=== PATIENT | female | born 1970 | race African-American/Black ===

== ENCOUNTER 2016-09-10 13:36 | Emergency (ER) | payer OTHER ==
[2016-09-10 13:43] VITALS: BMI 38.1
[2016-09-10] MEDS ORDERED: KETOROLAC TROMETHAMINE 60 MG/2 ML VIAL IM ONE (15:00)
[2016-09-10] MEDS ORDERED: KETOROLAC TROMETHAMINE 60 MG/2 ML VIAL ONE (15:02)
--- NOTE | 2016-09-10 15:34 | PDOC ---
[id number] Source: Patient Exam Limitations: No Limitations - History of Present Illness Initial Comments: 09/10/16 15:43 46-year-old female presents to the ED with complaints of low back pain radiating to her right buttock and now to her right groin. Patient states has history of spinal spondylolisthesis and spondylolysis and has had numerous procedures including epidurals, nerve therapy, pain meds, and now is pending surgery but needed cardiac clearance secondary to an arrhythmia. Pt states psin normally is in her right back, buttock but not to her right groin and concerned with the symptoms but denies any sensory changes to the toes, weakness of the right lower extremity, swelling, or skin discoloration. patient states has been taking Motrin with no relief. Timing/Duration: getting worse Severity: moderate Associated Symptoms: reports: denies symptoms <Lorraine Walker - Last Filed: 09/15/16 08:35> - General Chief Complaint: Pain Stated Complaint: RT SIDE PAIN, PELVIC PAIN Time Seen by Provider: 09/10/16 14:01 Past History <Francisco Sarmiento - Last Filed: 09/10/16 20:40> - Past Medical History Anemia: No Asthma: No Cancer: No Cardiac Disorders: No CVA: No COPD: No CHF: No Dementia: No Diabetes: No GI Disorders: Yes (diverticulitis) Disorders: No HTN: Yes Hypercholesterolemia: No Liver Disease: No Seizures: No Thyroid Disease: No Other medical history: SPINE PROBLEMS - Surgical History Abdominal Surgery: Yes Appendectomy: No Cardiac Surgery: No Cholecystectomy: Yes Lung Surgery: No Neurologic Surgery: No Orthopedic Surgery: No - Reproductive History Dysfunctional Uterine Bleeding: Yes Ectopic : No Endometrial CA: No Polycystic Ovaries: No Tubal Ligation: Yes - Immunization History Immunization Up to Date: Yes - Psycho/Social/Smoking Cessation Hx Anxiety: No Suicidal Ideation: No Smoking Status: No Smoking History: Never smoked Have you smoked in the past 12 months: No Number of Cigarettes Smoked Daily: 0 If you are a former smoker, when did you quit?: 1989 Information on smoking cessation initiated: No Hx Alcohol Use: No Drug/Substance Use Hx: No Substance Use Type: None Hx Substance Use Treatment: No Patient Lives Alone: No Lives with/in: spouse/SO <Lorraine Walker - Last Filed: 09/15/16 08:35> - Past Medical History Allergies/Adverse Reactions: Allergies Allergy/AdvReac Type Severity Reaction Status Date / Time naproxen [From Naprosyn] Allergy Mild Itching Verified 09/10/16 13:40 STRAWBERRIES Allergy Itching Uncoded 09/10/16 13:40 TOMATOES Allergy Itching Uncoded 09/10/16 13:40 Home Medications: Ambulatory Orders Lisinopril/Hydrochlorothiazide [Lisinopril-Hctz 20-25 mg Tab] 1 each PO DAILY Cyclobenzaprine HCl [Flexeril -] 10 mg PO Q8H PRN #9 tablet 06/10/16 Hydrocodone/Acetaminophen [Vicodin Hp 10-300 mg Tablet] 1 each PO Q8H PRN #1 tablet MDD 3 tabs 06/10/16 Polyethylene Glycol 3350 [Miralax 119 gm Btl -] 17 gm PO DAILY PRN #0 bottle 06/16 Sennosides/Docusate Sodium [Pericolace -] 2 tablet PO HS PRN #0 tablet 06/10/16 Oxycodone HCl/Acetaminophen [Percocet 10-325 mg Tablet] 1 each PO Q6H PRN #12 tablet MDD 4 TABS 09/10/16 Review of Systems - Review of Systems Able to Perform ROS?: Yes Constitutional: No: Symptoms Reported HEENTM: No: Symptoms Reported Respiratory: No: Symptoms reported Cardiac (ROS): No: Symptoms Reported ABD/GI: No: Symptoms Reported : No: Frequency Musculoskeletal: Yes: Back Pain, Joint Pain, Muscle Pain (right groin) Integumentary: No: Symptoms Reported Neurological: No: Symptoms reported <Lorraine Walker - Last Filed: 09/15/16 08:35> *Physical Exam - Vital Signs Last Vital Signs Temp Pulse Resp BP Pulse Ox 98.4 F 110 H 18 160/89 100 09/10/16 13:40 09/10/16 13:40 09/10/16 13:40 09/10/16 13:40 09/10/16 13:40 <Francisco Sarmiento - Last Filed: 09/10/16 20:40> - Vital Signs Last Vital Signs Temp Pulse Resp BP Pulse Ox 98.4 F 110 H 18 160/89 100 09/10/16 13:40 09/10/16 13:40 09/10/16 13:40 09/10/16 13:40 09/10/16 13:40 - Physical Exam General Appearance: Yes: Nourished, Appropriately Dressed. No: Apparent Distress Neck: positive: Supple. negative: Tender, Decreased range of motion Respiratory/Chest: positive: Lungs Clear, Normal Breath Sounds. negative: Respiratory Distress, Accessory Muscle Use Cardiovascular: positive: Regular Rhythm, Regular Rate. negative: Murmur Female Pelvic Exam: positive: normal adnexa. negative: CMT, discharge, vaginal bleeding Gastrointestinal/Abdominal: positive: Soft, Tenderness (right suprapubic, right inguinal) Musculoskeletal: positive: Other (right sciatica, right paraspinous at L5 level) . negative: CVA Tenderness, Decreased Range of Motion, Vertebral Tenderness Extremity: positive: Normal Capillary Refill, Normal Inspection, Normal Range of Motion Integumentary: positive: Normal Color, Warm, Moist Neurologic: positive: Motor Strength 5/5 (ambulatory) <Lorraine Walker - Last Filed: 09/15/16 08:35> ED Treatment Course - ADDITIONAL ORDERS Additional order review: Laboratory Results 09/10/16 15:48 Urine Color Lt. yellow Urine Appearance Clear Urine pH 7.5 D Ur Specific [place] 1.010 Urine Protein Negative Urine Glucose (UA) Negative Urine Ketones Negative Urine Blood Negative Urine Nitrite Negative Urine Bilirubin Negative Urine Urobilinogen 0.2 e.u/dl Ur Leukocyte Esterase Trace H D Urine RBC 2 Urine WBC 1 Ur Epithelial Cells Rare Urine Bacteria Rare - Medications Given in the ED: ED Medications Discontinued Medications Generic Name Dose Route Start Last Admin Trade Name Freq PRN Reason Stop Dose Admin Ketorolac Tromethamine 60 mg 09/10/16 15:00 09/10/16 15:07 Toradol Injection - IM 09/10/16 15:01 60 mg ONCE ONE Administration Oxycodone/Acetaminophen 1 combo 09/10/16 17:40 09/10/16 17:41 Percocet 5/325 - PO 09/10/16 17:41 1 combo ONCE ONE Administration <Francisco Sarmiento - Last Filed: 09/10/16 20:40> - Medications Given in the ED: ED Medications Discontinued Medications Generic Name Dose Route Start Last Admin Trade Name Freq PRN Reason Stop Dose Admin Ketorolac Tromethamine 60 mg 09/10/16 15:00 09/10/16 15:07 Toradol Injection - IM 09/10/16 15:01 60 mg ONCE ONE Administration <Lorraine Walker - Last Filed: 09/15/16 08:35> Medical Decision Making - Medical Decision Making 09/10/16 20:40 ULTRASOUND SHOWS RIGHT OVARIAN CYST. PLAN: D/C HOME WITH PAIN RELIEF F/U WITH SURVEILLANCE SYSTEM MONITOR. <Francisco Sarmiento - Last Filed: 09/10/16 20:40> - Medical Decision Making 09/10/16 14:47 Patient with history of chronic back pain and is pending spinal surgery. Patient states pain has gone to her right buttocks and right hip but never to her right groin. Patient states has been taking Motrin since she was told not to take Vicodin since needed a drug holiday. Patient on exam had right sciatica tenderness, right paraspinous muscle tenderness, and right inguinal pain with mild right suprapubic tenderness on exam. Patient concerning for UTI or worsening spondylosis. Patient ordered for urine and IM Toradol. 09/10/16 17:24 Laboratory Tests 09/10/16 15:48 Urine Ketones Negative Urine Nitrite Negative Urine Bilirubin Negative Ur Leukocyte Esterase Trace H D Pt still with right suprapubic tenderness. Pt had no adnexal tenderness on exam. Pt ordered for percocet, will be given a pitcher of water, and ordered fro a pelvic ultrasound <Lorraine Walker - Last Filed: 09/15/16 08:35> *DC/Admit/Observation/Transfer - Discharge Dispostion Admit: No <Francisco Sarmiento - Last Filed: 09/10/16 20:40> <Lorraine Walker - Last Filed: 09/15/16 08:35> Diagnosis at time of Disposition: Ovarian cyst Qualifiers: Laterality: right Qualified Code(s): N83.20 - Unspecified ovarian cysts - Discharge Dispostion Disposition: HOME - Prescriptions Prescriptions: Oxycodone HCl/Acetaminophen [Percocet 10-325 mg Tablet] 1 each PO Q6H PRN #12 tablet MDD 4 TABS PRN Reason: Severe Pain - Referrals Referrals: Charles Mccallum MD [Primary Care Provider] - - Patient Instructions Printed Discharge Instructions: DI for Ovarian Cyst Removal, DI for Ovarian Cyst Additional Instructions: FOLLOW UP WITH YOUR SURVEILLANCE SYSTEM MONITOR SPECIALIST DISCUSSED. TAKE MEDICATIONS PRESCRIBED. DO NOT DRIVE, DRINK ALCOHOL, OR OPERATE HEAVY MACHINERY WHILE TAKING PERCOCET. YOU MAY APPLY WARM COMPRESS TO AFFECTED AREA NEEDED. Print Language: GIBR[place]
[2016-09-10 16:16] LABS: PH,URINE 7.5 (5.0-8.0); URINE APPEARANCE CLEAR; URINE BILIRUBIN NEGATIVE (NEGATIVE); URINE BLOOD NEGATIVE (NEGATIVE); URINE COLOR LT. YELLOW; URINE GLUCOSE (UA) NEGATIVE (NEGATIVE); URINE KETONE NEGATIVE (NEGATIVE); URINE NITRITE NEGATIVE (NEGATIVE); URINE PROTEIN NEGATIVE (NEGATIVE); URINE UROBILINOGEN 0.2 E.U/dl E.U./dl (0.2-1.0)
[2016-09-10 16:25] LABS: URINE LEUK ESTERASE TRACE (NEGATIVE)
[2016-09-10 17:08] LABS: URINE BACTERIA RARE /hpf (NONE SEEN); URINE RBC 2 /hpf (0-3); URINE WBC 1 /hpf (3-5)
[2016-09-10] MEDS ORDERED: OXYCODONE/APAP 5/325MG COMBO TABLET ONE (17:40)
[2016-09-10] MEDS ORDERED: OXYCODONE/APAP 5/325MG COMBO TABLET PO ONE (17:40)
[2016-09-10 20:48] VITALS: BP 142/78; PULSE 88; TEMP 97.7
== END 2016-09-10 20:51 | disposition home or self-care (01) ==
LOC: JER 13:36
PROC: 3E0233Z Introduction of Anti-inflammatory into Muscle, Percutaneous Approach (ICD-10-PCS; principal; 2016-09-10)
DX: N83.291 Other ovarian cyst, right side (principal)
CPT/HCPCS: 76830-TC; 81003; 81015; 96372; 99281-25